=== PATIENT | male | born 1990 | race Caucasian/White ===

== ENCOUNTER 2020-09-27 09:46 | Outpatient (NON) | payer SELFPAY ==
[2020-09-27 22:40] LABS: SARS-CoV-2 RNA PCR Negative
== END 2020-09-27 09:47 ==
PROVIDERS: PCP Family Medicine; Visit Provider Family Medicine
DX: Z20.828 Contact with and (suspected) exposure to other viral communicable diseases (principal)
CPT/HCPCS: 87635; C9803; U0003

== ENCOUNTER → 2021-11-21 14:43 | Outpatient (CLI) | payer BC, SELFPAY ==
--- NOTE | ~2021-11-21 | XR_ITS ---
XR foot RT min 3V DATE: 11/21/2021 14:57 INDICATION: Fall from truck, landing on rock. Right foot pain. TECHNIQUE: 4 views COMPARISON: None FINDINGS: There is mild osteoarthritic change at the first metatarsophalangeal joint. No fracture, dislocation, periosteal reaction or bone destruction is detected. IMPRESSION: No fracture or dislocation Reviewed, dictated and finalized at location B. [employer]IALS ANALYST IMPRESSION: No fracture or dislocation
== END ==
PROVIDERS: PCP Family Medicine; Visit Provider Nurse Practitioner Family
DX: M19.071 Primary osteoarthritis, right ankle and foot (principal)
CPT/HCPCS: 73630

== ENCOUNTER 2022-09-23 17:50 | Emergency (ER) | payer OTHER, SELFPAY ==
[2022-09-23 18:25] VITALS: BP 150/86; PULSE 103; RESP 18; TEMP 36.8; O2SAT 99
--- NOTE | 2022-09-23 19:51 | PC.NURSE ---
patient called for room placement without answer at this time.
== END 2022-09-23 21:14 | disposition left against medical advice (07) ==
LOC: ANHED 19:55
PROVIDERS: PCP Family Medicine
DX: S69.92XA Unspecified injury of left wrist, hand and finger(s), initial encounter (principal); W27.0XXA Contact with workbench tool, initial encounter
CPT/HCPCS: 99199

== ENCOUNTER → 2023-06-05 11:15 | Outpatient (CLI) | payer OTHER, SELFPAY ==
--- NOTE | ~2023-06-05 | XR_ITS ---
EXAMINATION: [id number] DATE: 06/05/2023 11:31 INDICATION: Anterior and lateral lower left rib pain and shortness of breath post fall TECHNIQUE: A frontal inspiratory view of the chest and 3 views of the left ribs were obtained. COMPARISON: None FINDINGS: Nondisplaced mildly angulated fracture at the anterior left seventh rib. No other rib fractures ident ified. Small lung volumes. Mild linear discoid atelectasis at the left lung base which may be related to splinting. No other airspace opacities, pulmonary edema, pleural effusion or pneumothorax. Heart size is normal. IMPRESSION: 1. Mildly angulated fracture of the anterior left seventh rib. 2. Small lung volumes with mild left basilar atelectasis which may be related to splinting. No pleura l effusion or pneumothorax. Reviewed, dictated and finalized at location L. IMPRESSION: 1. Mildly angulated fracture of the anterior left seventh rib. 2. Small lung volumes with mild left basilar atelectasis which may be related t o splinting. No pleural effusion or pneumothorax.
== END ==
PROVIDERS: PCP Family Medicine; Visit Provider Nurse Practitioner Family
DX: R07.81 Pleurodynia (principal); R91.8 Other nonspecific abnormal finding of lung field
CPT/HCPCS: 71101